=== PATIENT | male | born 1950 | race Two or more races ===

== ENCOUNTER 2017-12-28 12:01 | Emergency (ER) | payer MEDICARE, OTHER ==
[~2017-12-28] VITALS: Ht 177.8 cm; Wt 90.7 kg
[2017-12-28 13:42] LABS: Urine Bacteria NONE SEEN /hpf (None Seen); Urine Blood 1+ /uL (Negative); Urine Specific Gravity 1.014 (1.001-1.035); Urine WBC 2 /hpf (0 - 3)
[2017-12-28 14:27] VITALS: BP 128/80
== END 2017-12-28 14:30 | disposition home or self-care (01) ==
LOC: EDBD 12:01 → ER 12:01
DX: R33.9 Retention of urine, unspecified (principal); E11.9 Type 2 diabetes mellitus without complications; I10 Essential (primary) hypertension; E78.5 Hyperlipidemia, unspecified; Z90.49 Acquired absence of other specified parts of digestive tract; Z87.891 Personal history of nicotine dependence
CPT/HCPCS: 51702; 81001

== ENCOUNTER 2021-10-25 16:22 | Emergency (ER) | payer OTHER ==
[~2021-10-25] VITALS: Ht 175.3 cm; Wt 72.6 kg
[2021-10-25 17:57] VITALS: BP 168/103
[2021-11-07] MEDS ORDERED: CIPR500T4 PO (15:12)
[2021-11-07] MEDS ORDERED: SACC250C PO (15:12)
== END 2021-10-25 18:11 | disposition home or self-care (01) ==
LOC: ER 16:22
DX: T83.9XXA Unspecified complication of genitourinary prosthetic device, implant and graft, initial encounter (principal); N39.0 Urinary tract infection, site not specified; N40.1 Benign prostatic hyperplasia with lower urinary tract symptoms; R33.8 Other retention of urine
CPT/HCPCS: 51702; 81002

== ENCOUNTER 2021-11-05 00:19 | Inpatient (IN) | payer OTHER, MEDICARE ==
[~2021-11-05] VITALS: Ht 175.3 cm; Wt 77.7 kg
[2021-11-05] MEDS ORDERED: ONDANSETRON ODT 4 MG TAB PO ONE (07:00)
[2021-11-05] MEDS ORDERED: SODIUM CHLORIDE 0.9% 1,000 ML IV ONE (07:30)
[2021-11-05 07:37] LABS: Basophils # (auto) 0.1 10 ^3/uL (0-0.2); Eosinophils # (auto) 0.2 10 ^3/uL (0-0.8); Eosinophils % (auto) 2.2 % (0.0-7.0); Hematocrit 41.6 % (41.0-53.0); Hemoglobin 14.3 g/dL (13.5-17.5); Lymphocytes # (auto) 1.8 10 ^3/uL (0.4-5.4); Lymphocytes % (auto) 17.5 % (10.0-50.0); Mean Corpuscular Hemoglobin 29.3 pg (28.0-32.0); Mean Corpuscular Hgb Conc. 34.5 g/dL (32.0-36.0); Monocytes # (auto) 0.9 10 ^3/uL (0-1.3); Monocytes % (auto) 8.7 % (0.0-12.0); Neutrophils # (auto) 7.2 10 ^3/uL (1.6-8.6); Neutrophils % (auto) 70.6 % (37.0-80.0); Red Blood Cells 4.89 10^6/uL (4.5-5.90); Red Cell Distribution Width 14.5 % (11.8-14.3); White Blood Cell 10.1 10^3/uL (4.4-10.8)
[2021-11-05 07:50] LABS: INR 1.07 (0.9-1.15); Partial Thromboplastin Time 26.5 sec (23.6-33.0)
[2021-11-05 07:54] LABS: Potassium 3.5 mmol/L (3.5-5.1)
[2021-11-05 08:05] LABS: BUN/Creatinine Ratio 10.8; Bilirubin, Total 0.4 mg/dL (0.2-1.0); Calcium 9.4 mg/dL (8.5-10.1); Total Protein 7.7 g/dL (6.4-8.2)
[2021-11-05] MEDS ORDERED: cefTRIAXone 1GM/50ML D5W 50 ML IV ONE (08:15)
[2021-11-05] MEDS ORDERED: CIPROFLOXACIN 400MG/200ML 200 ML IV ONE ×2 (08:15→09:20)
[2021-11-05] MEDS ORDERED: LIDOCAINE 2% JELLY 11ml (GLYDO) ONE (08:37)
[2021-11-05] MEDS ORDERED: LIDOCAINE 2% JELLY 11ml (GLYDO) UR ONE (09:15)
[2021-11-05 09:22] LABS: Urine Bacteria NONE SEEN /hpf (None Seen); Urine Blood 3+ /uL (Negative); Urine WBC 14 /hpf (0 - 3)
[2021-11-05] MEDS ORDERED: LORazepam 2MG/ML-1ML VIAL IV PRN (11:15)
[2021-11-05] MEDS ORDERED: MORPHINE SULFATE INJECTION 2 MG/ML SYRG IV PRN ×3 (11:15→12:30)
[2021-11-05] MEDS ORDERED: NITROGLYCERIN 0.4 MG SL TAB SL PRN ×2 (11:15→12:30)
[2021-11-05 12:14] LABS: Cholesterol 156 mg/dL (< 200); HDL Cholesterol 59 mg/dL (40-59); LDL Cholesterol 82 mg/dL (< 100); Triglycerides 102 mg/dL (< 150)
[2021-11-05] MEDS ORDERED: DEXTROSE (50%) 50ML SYRG IV PRN (12:30)
[2021-11-05] MEDS ORDERED: DOCUSATE SOD 100 MG CAP PO PRN (12:30)
[2021-11-05] MEDS ORDERED: LORazepam 0.5 MG TAB PO PRN (12:30)
[2021-11-05] MEDS ORDERED: ACETAMINOPHEN 325 MG TAB PO PRN (12:30)
[2021-11-05] MEDS ORDERED: ALUM & MAG HYDROX-SIMETH LIQ(MAALOX) 30 ML PO PRN (12:30)
[2021-11-05] MEDS ORDERED: HYDROcodone-ACET 5/325MG TAB PO PRN (12:30)
[2021-11-05] MEDS ORDERED: METOCLOPRAMIDE HCL 5MG/ml INJ 2ml VIAL IV PRN (12:30)
[2021-11-05] MEDS ORDERED: hydrALAZINE HCL 20 MG/ML VL IV PRN (13:15)
[2021-11-05 13:18] LABS: Alcohol, Urine < 3.0 mg/dL (0-10); Amphetamine Screen, Urine NEGATIVE (NEGATIVE); Barbiturate Scree,Urine NEGATIVE (NEGATIVE); Benzodiazephine Screen, Urine NEGATIVE (NEGATIVE); Cannabinoid Screen, Urine NEGATIVE (NEGATIVE); Cocaine Screen, Urine NEGATIVE (NEGATIVE); Opiate Scree,Urine NEGATIVE (NEGATIVE); Phencyclidine Screen, Urine NEGATIVE (NEGATIVE)
[2021-11-05] MEDS: SODIUM CHLORIDE 0.9% 1,000 ML IV SCH (14:03)
[2021-11-05] MEDS: InsuLIN REG 1unit/0.01ml Soln (100units/ml) SC SCH ×2 (17:00→22:48)
[2021-11-05] MEDS: ACCU-CHEK COMFORT CURVE STRIP VI SCH ×2 (17:00→22:25)
[2021-11-05] MEDS: TAMSULOSIN HYDROCHLORIDE 0.4 MG CAP PO SCH (17:48)
[2021-11-05] MEDS ORDERED: ATOR10TA52 PO (18:45)
[2021-11-05] MEDS ORDERED: LISIPOW XX (18:45)
[2021-11-05] MEDS ORDERED: METF-370 PO (18:45)
[2021-11-05] MEDS ORDERED: TAM04C PO (18:45)
[2021-11-05 22:11] VITALS: BP 142/83
[2021-11-05] MEDS: ATORVASTATIN 20 MG TAB PO SCH (22:25)
[2021-11-06 05:28] VITALS: BP 130/78
[2021-11-06] MEDS: ACCU-CHEK COMFORT CURVE STRIP VI SCH ×4 (05:31→21:41)
[2021-11-06] MEDS: InsuLIN REG 1unit/0.01ml Soln (100units/ml) SC SCH ×4 (05:31→21:52)
[2021-11-06] MEDS: SODIUM CHLORIDE 0.9% 1,000 ML IV SCH ×2 (05:31→13:45)
[2021-11-06 07:11] LABS: Basophils # (auto) 0.1 10 ^3/uL (0-0.2); Basophils % (auto) 1.1 % (0.0-2.0); Eosinophils # (auto) 0.1 10 ^3/uL (0-0.8); Eosinophils % (auto) 2.2 % (0.0-7.0); Hematocrit 35.3 % (41.0-53.0); Hemoglobin 12.3 g/dL (13.5-17.5); Lymphocytes # (auto) 1.1 10 ^3/uL (0.4-5.4); Lymphocytes % (auto) 17.6 % (10.0-50.0); Mean Corpuscular Hemoglobin 29.5 pg (28.0-32.0); Mean Corpuscular Hgb Conc. 34.9 g/dL (32.0-36.0); Mean Corpuscular Volume 84.5 fL (80.0-100.0); Monocytes # (auto) 0.5 10 ^3/uL (0-1.3); Monocytes % (auto) 7.9 % (0.0-12.0); Neutrophils # (auto) 4.3 10 ^3/uL (1.6-8.6); Neutrophils % (auto) 71.2 % (37.0-80.0); Red Blood Cells 4.18 10^6/uL (4.5-5.90); Red Cell Distribution Width 14.4 % (11.8-14.3)
[2021-11-06 07:25] LABS: Albumin 3.2 g/dL (3.4-5.0); Calcium 8.5 mg/dL (8.5-10.1); Magnesium 2.7 mg/dL (1.6-2.6); Potassium 3.2 mmol/L (3.5-5.1)
[2021-11-06 07:27] LABS: INR 1.1 (0.9-1.15); Partial Thromboplastin Time 26.3 sec (23.6-33.0)
[2021-11-06 07:31] LABS: Bilirubin, Total 0.5 mg/dL (0.2-1.0); Total Protein 6.6 g/dL (6.4-8.2); Uric Acid 4.9 mg/dL (3.5-7.2)
[2021-11-06 09:00] VITALS: BP 149/83
[2021-11-06] MEDS: FINASTERIDE 5 MG TAB PO SCH (09:01)
[2021-11-06] MEDS: ASPirin 81 mg TAB PO SCH (09:01)
[2021-11-06] MEDS: cefTRIAXone 1GM/50ML D5W 50 ML IV SCH (09:01)
[2021-11-06 13:00] VITALS: BP 152/78
[2021-11-06 13:30] LABS: Folate (Folic Acid) 6.64 ng/mL (5.38-24)
[2021-11-06 17:00] VITALS: BP 143/89
[2021-11-06] MEDS: TAMSULOSIN HYDROCHLORIDE 0.4 MG CAP PO SCH (17:20)
[2021-11-06] MEDS: ATORVASTATIN 20 MG TAB PO SCH (21:41)
[2021-11-06 22:00] VITALS: BP 151/90
[2021-11-07 05:00] VITALS: BP 134/79
[2021-11-07] MEDS: InsuLIN REG 1unit/0.01ml Soln (100units/ml) SC SCH ×3 (06:13→17:00)
[2021-11-07] MEDS: ACCU-CHEK COMFORT CURVE STRIP VI SCH ×3 (06:14→17:00)
[2021-11-07 06:33] LABS: Hematocrit 31.7 % (41.0-53.0); Hemoglobin 11.1 g/dL (13.5-17.5)
[2021-11-07 07:00] LABS: BUN/Creatinine Ratio 14.5; Calcium 8.2 mg/dL (8.5-10.1); Potassium 3.5 mmol/L (3.5-5.1)
[2021-11-07 08:30] VITALS: BP 153/95
[2021-11-07] MEDS: FINASTERIDE 5 MG TAB PO SCH (08:48)
[2021-11-07] MEDS: ASPirin 81 mg TAB PO SCH (08:48)
[2021-11-07] MEDS: SODIUM CHLORIDE 0.9% 1,000 ML IV SCH (08:49)
[2021-11-07] MEDS: cefTRIAXone 1GM/50ML D5W 50 ML IV SCH (08:49)
[2021-11-07 09:00] VITALS: BP 153/95
[2021-11-07 13:06] VITALS: BP 128/59
[2021-11-07] MEDS ORDERED: SACC250C PO (15:12)
[2021-11-07] MEDS ORDERED: CIPR500T4 PO (15:12)
[2021-11-07 15:36] VITALS: BP 128/71
[2021-11-07] MEDS: TAMSULOSIN HYDROCHLORIDE 0.4 MG CAP PO SCH (17:15)
== END 2021-11-07 17:20 | disposition home health service (06) | DRG 699 ==
LOC: ER 00:21 → TELE 12:28 → TELE-WESTW 17:31
PROVIDERS: ADMIT Hospitalist; ATTEND Internal Medicine
PROC: 0T2BX0Z Change Drainage Device in Bladder, External Approach (ICD-10-PCS; principal; 2021-11-05)
DX: T83.028A Displacement of other urinary catheter, initial encounter (principal); N10 Acute pyelonephritis; T83.83XA Hemorrhage due to genitourinary prosthetic devices, implants and grafts, initial encounter; K40.30 Unilateral inguinal hernia, with obstruction, without gangrene, not specified as recurrent; R33.8 Other retention of urine; N40.1 Benign prostatic hyperplasia with lower urinary tract symptoms; E11.9 Type 2 diabetes mellitus without complications; E78.5 Hyperlipidemia, unspecified; E87.6 Hypokalemia; R55 Syncope and collapse; Y84.6 Urinary catheterization as the cause of abnormal reaction of the patient, or of later complication, without mention of misadventure at the time of the procedure; Z20.822 Contact with and (suspected) exposure to COVID-19; I10 Essential (primary) hypertension; K80.20 Calculus of gallbladder without cholecystitis without obstruction; Z79.82 Long term (current) use of aspirin; Z87.891 Personal history of nicotine dependence; Z79.899 Other long term (current) drug therapy; Z86.73 Personal history of transient ischemic attack (TIA), and cerebral infarction without residual deficits; Z83.3 Family history of diabetes mellitus; Y92.89 Other specified places as the place of occurrence of the external cause
CPT/HCPCS: 36415; 51702; 70450; 70551; 71045; 74176; 76856; 80048; 80053; 80061; 80307; 81001; 82306; 82607; 82746; 82962; 83036; 83735; 83880; 84100; 84154; 84443; 84484; 84550; 85014; 85018; 85025; 85379; 85610; 85730; 87040; 87086; 87426; 93005; 93306; 93886; 96361; 96365; 96368; 97163; G0378; J0696; J1815; Q0162